=== PATIENT | female | born 1940 | race Caucasian/White ===

== ENCOUNTER → 2017-04-25 | Outpatient (CLI) | payer MEDICARE, BC ==
[2014-05-05 15:48] VITALS: BP 125/56
[~2017-04-25] MED LIST: ASPI-630 PO; CA C1TAB63 PO; CYAN100072 PO; ESOM40CA PO; FOLI1TAB4 PO; FURO40TA4 PO; GLIM2TAB2 PO; HYDR-2758 PO; INSU100V13 SQ; IRON45TA3 PO; LEVO125T PO; METF500T4 PO; METO25TA9 PO; OMEG1CAP2 PO; POTASSIUM CHLO10 MEQ PO; RISE35TA3 PO; TADA20TA33 PO
[2017-04-25 12:24] LABS: BASO # 0.1 x10^3/uL (0.0-0.2); BASO % 1 % (0-3); EOS % 3 % (0-3); HEMATOCRIT 36.1 % (36.0-47.0); HEMOGLOBIN 12.1 g/dL (12.0-15.5); LYMPH # 1.6 x10^3/uL (1.0-4.8); LYMPH % 21 % (24-48); MEAN CORPUSCULAR HEMOGLOBIN 30 pg (25-35); MEAN CORPUSCULAR HGB CONC 34 g/dL (31-37); MEAN CORPUSCULAR VOLUME 89 fL (79-100); MONO % 6 % (0-9); NEUT % 68 % (31-73); PLATELET COUNT 248 x10^3/uL (140-400); RED BLOOD COUNT 4.07 x10^6/uL (3.50-5.40); RED CELL DISTRIBUTION WIDTH 14.3 % (11.5-14.5); WHITE BLOOD COUNT 7.4 x10^3/uL (4.0-11.0)
[2017-04-25 12:44] LABS: ALBUMIN 3.6 g/dL (3.4-5.0); CALCIUM 8.8 mg/dL (8.5-10.1); CREATININE 0.8 mg/dL (0.6-1.0); GFR 69.6; POTASSIUM 4.4 mmol/L (3.5-5.1); TOTAL BILIRUBIN 0.4 mg/dL (0.2-1.0); TOTAL PROTEIN 7.2 g/dL (6.4-8.2)
[2017-04-25 12:47] LABS: FREE T4 1.14 ng/dL (0.76-1.46)
== END | disposition home or self-care (01) ==
LOC: LAB 11:51
PROVIDERS: ATTEND Internal Medicine Critical Care Medicine
DX: I27.0 Primary pulmonary hypertension (principal); E03.9 Hypothyroidism, unspecified; I42.0 Dilated cardiomyopathy; Z79.899 Other long term (current) drug therapy
CPT/HCPCS: 36415; 80053; 83880; 84439; 84443; 85025